=== PATIENT | male | born 1985 | race African-American/Black ===

== ENCOUNTER 2018-10-27 09:31 | Emergency (ER) | payer MEDICAID, OTHER ==
[~2018-10-27] VITALS: Ht 185.4 cm; Wt 118.0 kg
[2018-10-27 15:59] VITALS: BP 149/89
== END 2018-10-27 16:01 | disposition home or self-care (01) ==
LOC: ER 09:31
DX: M25.562 Pain in left knee (principal); F17.210 Nicotine dependence, cigarettes, uncomplicated; F12.10 Cannabis abuse, uncomplicated; Z87.828 Personal history of other (healed) physical injury and trauma
CPT/HCPCS: 99282

== ENCOUNTER 2022-05-31 21:17 | Emergency (ER) | payer MEDICAID ==
[~2022-05-31] VITALS: Ht 182.9 cm; Wt 132.1 kg
[2022-05-31 21:21] VITALS: BP 120/83
[2022-06-01] MEDS ORDERED: KETOROLAC 30MG/ML VIAL IM ONE (02:00)
[2022-06-01] MEDS ORDERED: NAP5EC MT (02:02)
[2022-06-01] MEDS ORDERED: KETOROLAC 30MG/ML VIAL IM NR (02:30)
== END 2022-06-01 03:00 | disposition home or self-care (01) ==
LOC: ER 21:17
DX: S96.911A Strain of unspecified muscle and tendon at ankle and foot level, right foot, initial encounter (principal); X58.XXXA Exposure to other specified factors, initial encounter; Y93.89 Activity, other specified; Y92.89 Other specified places as the place of occurrence of the external cause; Y99.8 Other external cause status; F12.10 Cannabis abuse, uncomplicated
CPT/HCPCS: 96372; 99283; J1885